=== PATIENT | female | born 1995 | race Caucasian/White ===

== ENCOUNTER 2017-04-08 20:45 | Emergency (ER) | payer OTHER ==
[2017-04-08 20:56] VITALS: TEMP 99.1
[2017-04-08] MEDS ORDERED: IBUPROFEN 600 MG TAB PO ONE (21:38)
[2017-04-08] MEDS ORDERED: HYDROCOD/APAP 5/325 PREPACK#6 BTL TAKEHOME ONE (21:39)
--- NOTE | 2017-04-08 21:41 | EDPHY ---
H & P Time Seen by Provider: 04/08/17 21:32 HPI/ROS: CHIEF COMPLAINT: Right big toe pain HISTORY OF PRESENT ILLNESS: Playing volleyball today, toe pain started around 4 :00 p.m. Unsure of exact injury. Worse with walking on it. REVIEW OF SYSTEMS: No other foot or ankle symptoms PAST MEDICAL HISTORY: Negative General Appearance: Alert and conversant, cooperative. Swelling and tenderness and very slight ecchymosis at the base of the great toe on the right foot. Normal motor and sensory, normal vascular. Skin intact without laceration. Emergency Department course/MDM: X-ray reviewed with the patient. Hard shoe, crutches, ortho followup mandatory. Smoking Status: Current every day smoker Constitutional: Initial Vital Signs Temperature (C) 37.3 C 04/08/17 20:52 Heart Rate 81 04/08/17 20:52 Respiratory Rate 17 04/08/17 20:52 Blood Pressure 94/64 L 04/08/17 20:52 O2 Sat (%) 98 04/08/17 20:52 O2 Delivery Mode Room Air Allergies/Adverse Reactions: No Known Allergies Allergy (Unverified 04/08/17 20:52) Home Medications: Medication Instructions Recorded NK [No Known Home Meds] 04/08/17 MDM/Departure - MDM Imaging Results: Imaging Impressions Toe X-Ray 04/08/17 21:00 Impression: Small avulsion at the base of the proximal phalanx involving the articular surface. Medications Given: Discontinued Medications Hydrocodone Bitart/Acetaminophen (Tryon 5/325mg Prepack#6) 1 btl TAKEHOME EDNOW ONE Stop: 04/08/17 21:40 Last Admin: 04/08/17 21:48 Dose: 1 btl Ibuprofen (Motrin) 600 mg PO EDNOW ONE Stop: 04/08/17 21:39 Last Admin: 04/08/17 21:48 Dose: 600 mg - Depart Disposition: Home, Routine, Self-Care Clinical Impression: Fracture of great toe of right foot Qualifiers: Encounter type: initial encounter Fracture type: closed Phalanx: proximal Fracture alignment: displaced Qualified Code(s): S92.411A - Displaced fracture of proximal phalanx of right great toe, initial encounter for closed fracture Condition: Good Instructions: Toe Fracture (ED) Additional Instructions: crutches and non weight bearing; call ortho for followup this week in the office Referrals: Korey Damian MD [Medical Doctor] - 2-3 days, call for appt. (this week)
[2017-04-08 22:17] VITALS: BP 116/74; PULSE 74; RESP 16; O2SAT 97
== END 2017-04-08 22:14 | disposition home or self-care (01) ==
DX: S92.411A Displaced fracture of proximal phalanx of right great toe, initial encounter for closed fracture (principal); F17.200 Nicotine dependence, unspecified, uncomplicated; X58.XXXA Exposure to other specified factors, initial encounter; Y93.68 Activity, volleyball (beach) (court)
CPT/HCPCS: L3260